=== PATIENT | female | born 1995 | race Caucasian/White ===

== ENCOUNTER 2017-11-25 23:24 | Emergency (ER) | payer BC ==
[2017-11-26] MEDS ORDERED: ACETAMINOPHEN 325 MG TAB PO ONE (00:05)
[2017-11-26] MEDS ORDERED: IBUPROFEN 600 MG TAB PO ONE ×2 (00:05→00:07)
[2017-11-26] MEDS ORDERED: ACETAMINOPHEN 325 MG TAB ONE (00:07)
--- NOTE | 2017-11-26 00:54 | EDPHY ---
H & P Smoking Status: Never smoked Time Seen by Provider: 11/26/17 00:45 HPI/ROS: CHIEF COMPLAINT: Facial pain HISTORY OF PRESENT ILLNESS: 22-year-old female here with complaint of pain to the bridge of her nose and left temporal region after she tripped and fell walking up a flight of stairs and landed face 1st onto the step in front of her. She denies any loss consciousness. She denies neck pain and arm paresthesias. She denies any other associated injuries other than contusion to the right knee. She does state that she has been ambulatory with minimal pain in the right knee. She takes no blood thinners or other prescribed medication other than control. She denies headache, vomiting. ROS As detailed in HPI (Jvaier Sanderson) Physical Exam: General: Alert and oriented. Nontoxic appearing. No acute distress HEENT: Pupils PERRLA. No oral lesions. Extraocular muscles intact. No bleeding in the posterior pharynx. Dried blood in the right nares. No septal hematoma. No nasal deformity. There is abrasion over the bridge of the nose but no repairable laceration. Cardiopulmonary: Regular rate and rhythm. No lower extremity edema Skin: [place] warm and dry. Minor skin abrasions to the right temporal region. No facial crepitus. Normal dental alignment with no facial deformity. Muscle skeletal: Moving all 4 extremities. Equal strength in upper extremities and lower extremities. Ambulatory. (Javier Sanderson) Constitutional: Initial Vital Signs Temperature (C) 37.0 C 11/25/17 23:30 Heart Rate 115 H 11/25/17 23:30 Respiratory Rate 16 11/25/17 23:30 Blood Pressure 129/87 H 11/25/17 23:30 O2 Sat (%) 94 11/25/17 23:30 O2 Delivery Mode Room Air Allergies/Adverse Reactions: No Known Allergies Allergy (Unverified 11/25/17 23:30) Home Medications: Medication Instructions Recorded Bcp 11/25/17 Medical Decision Making ED Course/Re-evaluation: 22-year-old female here with abrasion to the bridge of her nose and abrasion to the right side of her face that she tripped and fell. She also has abrasion to the right knee. No evidence of fracture of the nose or facial bones or orbital entrapment. Additionally there is no deformity of the knee and she is ambulatory with full range of motion. She was given plastics follow-up if she does indeed have a deformity of the nose after the swelling has come down. Low suspicion for facial bone fracture given no deformity and extraocular muscles intact. (Javier Sanderson) PHYSICIAN DOCUMENTATION: The patient was evaluated and managed by the Physician Pre Sales Architect. My co- signature indicates that I have reviewed this chart and I agree with the findings and plan of care as documented. I am the secondary supervising physician. (Susan Aguilar) - Data Points Medications Given: Discontinued Medications Acetaminophen (Tylenol) 650 mg PO EDNOW ONE Stop: 11/26/17 00:06 Last Admin: 11/26/17 00:10 Dose: 650 mg Ibuprofen (Motrin) 600 mg PO EDNOW ONE Stop: 11/26/17 00:06 Last Admin: 11/26/17 00:09 Dose: 600 mg Departure - Departure Disposition: Home, Routine, Self-Care Clinical Impression: Nasal contusion, Abrasion of face, Contusion, knee Condition: Good Instructions: Nasal Contusion (ED) Additional Instructions: Follow-up with Plastic surgery in 5-7 days if you have any deformity of your Nose. Referrals: PRIMO MANCILLA [Other] - As per Instructions Tad Wright MD [Medical Doctor] - As per Instructions
[2017-11-26 01:02] VITALS: BP 120/75
== END 2017-11-26 01:02 | disposition home or self-care (01) ==
DX: S00.33XA Contusion of nose, initial encounter (principal); S00.81XA Abrasion of other part of head, initial encounter; S80.01XA Contusion of right knee, initial encounter; W10.9XXA Fall (on) (from) unspecified stairs and steps, initial encounter; Y92.9 Unspecified place or not applicable; Y93.9 Activity, unspecified; Y99.9 Unspecified external cause status